=== PATIENT | female | born 1960 | race Caucasian/White ===

== ENCOUNTER → 2018-02-24 09:28 | Outpatient (CLI) | payer OTHER, SELFPAY ==
--- NOTE | 2018-02-24 | DI.MG.S_ITS ---
BILATERAL DIGITAL SCREENING MAMMOGRAM 3D/2D WITH CAD: 02/24/2018 CLINICAL: Routine screening. Comparison is made to exams dated: 02/02/2017 mammogram, 01/26/2016 mammogram, and 01/22/2015 mammogram - [facility]. There are scattered fibroglandular elements in both breasts. Current study was also evaluated with a Computer Aided Detection (CAD) system. No significant masses, calcifications, or other findings are seen in either breast. There has been no significant interval change. IMPRESSION: NEGATIVE There is no mammographic evidence of malignancy. A 1 year screening mammogram is recommended. This exam was interpreted at Station ID: [id number]. NOTE: For mammograms, a report in lay terms will be sent to the patient. Approximately 15% of breast malignancies will not be visualized mammographically. In the management of a palpable breast mass, a negative mammogram must not discourage biopsy of a clinically suspicious lesion. Electronically Signed By: Zhen conrad/emigdio:02/24/2018 11:39:05 letter sent: Normal Exam ACR BI-RADS Category 1: Negative 3341F
== END ==
PROVIDERS: Family Provider Physician Assistant Medical; PCP Physician Assistant Medical; Visit Provider Physician Assistant Medical
DX: Z12.31 Encounter for screening mammogram for malignant neoplasm of breast (principal); Z78.0 Asymptomatic menopausal state
CPT/HCPCS: 77063; 77067; 77080

== ENCOUNTER → 2019-08-23 12:40 | Outpatient (CLI) | payer OTHER, SELFPAY ==
--- NOTE | 2019-08-23 | DI.CT.S_ITS ---
PROCEDURE: CT KIDNEY URETER BLADDER (KUB) INDICATIONS: N20.0 KIDNEY STONE TECHNIQUE: Noncontrast 5 mm thick sections acquired from the diaphragms to the symphysis. 5 mm thick coronal and sagittal reformats were then performed. For radiation dose reduction, the following was used: automated exposure control, adjustment of mA and/or kV according to patient size. COMPARISON: [facility], CT, CT KUB, 06/09/2017, 11:16. [facility], CT, KIDNEY/ URETER/BLADDER, 10/06/2015, 8:35. FINDINGS: Image quality: Excellent. Lung bases: Lung bases are clear. Heart size is normal. Urinary system: Both kidneys are normal in size. At least 3 nonobstructing punctate right kidney stones. Question of punctate left nonobstructing kidney stone. Tiny cortical calcifications. Left kidney simple cyst measuring 2.4 cm. No hydronephrosis or perinephric fat stranding. Both ureters appear non-dilated throughout their expected courses. Bladder is decompressed; no calcified bladder stones. Other solid organs: Liver is normal in size. Hepatic steatosis. Gallbladder is absent. Pancreas is normal in contours. Spleen is normal in size. No adrenal nodules. Peritoneum and bowel: Unenhanced bowel loops demonstrate normal wall thickness and caliber. Appendix is surgically absent. No free fluid or air. Nodes and vessels: No retroperitoneal or mesenteric adenopathy by size criteria. Aorta and inferior vena cava are normal in caliber. Retroaortic left renal vein. Abdominal wall: No ventral hernias. Small right pelvic intramuscular hematoma. Pelvis: No free pelvic fluid. No inguinal hernias or adenopathy. Probable small left ovarian cyst measuring 1.7 cm. Bones: No suspicious bony lesions. No vertebral body compression fractures. IMPRESSION: 1. At least 3 nonobstructing punctate right kidney stones. 2. No hydronephrosis. 3. No bladder calculi. 4. Hepatic steatosis. Dictated by: Melvin Soto M.D. on 08/23/2019 at 13:54 Approved by: Melvin Soto M.D. on 08/23/2019 at 14:01
== END ==
PROVIDERS: Family Provider Physician Assistant Medical; PCP Physician Assistant Medical; Referring Provider Urology; Visit Provider Urology
DX: N20.0 Calculus of kidney (principal); N28.1 Cyst of kidney, acquired; K76.0 Fatty (change of) liver, not elsewhere classified; Z90.49 Acquired absence of other specified parts of digestive tract
CPT/HCPCS: 74176

== ENCOUNTER 2020-04-29 14:12 | Emergency (ER) | payer OTHER, SELFPAY ==
[2020-04-29 14:27] VITALS: BP 158/69; PULSE 110; RESP 24; TEMP 36.3; O2SAT 97
[2020-04-29] MEDS: ONDANSETRON 4 MG ODT SL (14:35)
[2020-04-29] MEDS: KETOROLAC 60 MG/2 ML VIAL 30 MG IM (14:35)
--- NOTE | 2020-04-29 15:08 | DI.CT.S_ITS ---
PROCEDURE: CT KIDNEY URETER BLADDER (KUB) INDICATIONS: flank pain, h/o kidney stone TECHNIQUE: Noncontrast 5 mm thick sections acquired from the diaphragms to the symphysis. 5 mm thick coronal and sagittal reformats were then performed. For radiation dose reduction, the following was used: automated exposure control, adjustment of mA and/or kV according to patient size. COMPARISON: [facility], CT, CT KUB, 06/09/2017, 11:16. [facility], CT, CT KIDNEY URETER BLADDER (KUB), 08/23/2019, 12:46. FINDINGS: Image quality: Excellent. Lung bases: Lung bases are clear. Heart size is normal. Urinary system: Both kidneys are normal in size. Within the right kidney, there are five punctate renal calcifications. There is no obstruction and overall appearance is unchanged compared to prior exam. Left renal cyst is present. Previous punctate superior renal pole calcification is no longer visualized. Left parapelvic cysts are noted. No hydronephrosis or perinephric fat stranding. Both ureters appear non-dilated throughout their expected courses. Bladder wall thickness is normal; no calcified bladder stones. There is incidental note of a retroaortic left renal vein. Other solid organs: Liver is mildly enlarged with steatosis. Gallbladder is unremarkable . Pancreas is normal in contours. Spleen is normal in size. No adrenal nodules. Peritoneum and bowel: Unenhanced bowel loops demonstrate normal wall thickness and caliber. No free fluid or air. Appendectomy surgical changes are noted. Nodes and vessels: No retroperitoneal or mesenteric adenopathy by size criteria. Aorta and inferior vena cava are normal in caliber. Abdominal wall: No ventral hernias. Pelvis: No free pelvic fluid. No inguinal hernias or adenopathy. 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 Bones: No suspicious bony lesions. No vertebral body compression fractures. IMPRESSION: 1. Unchanged appearance of punctate nonobstructing right renal calculi. 2. Previous punctate left renal calcification is no longer visualized. Dictated by: Saima Portillo M.D. on 04/29/2020 at 15:24 Approved by: Saima Portillo M.D. on 04/29/2020 at 15:31
[2020-04-29 16:04] VITALS: BP 139/86; PULSE 77; RESP 16; O2SAT 98
[2020-04-29] MEDS: SODIUM CHLORIDE 0.9% 1,000 ML 1000 ML IV (16:19)
[2020-04-29 16:37] LABS: Add Manual Diff / Slide Review NO; Basophils Absolute Auto 100 /uL (0-100); Basophils Percent Auto 0.6 % (0-2); Eosinophils Absolute Auto 300 /uL (0-450); Eosinophils Percent Auto 2.5 % (2-4); Hematocrit 41.2 % (36-46); Hemoglobin 14.1 g/dL (12.0-16.0); Lymphocytes Absolute Auto 3300 /uL (1100-4500); Mean Corpuscular HGB Conc 34.2 % (30-36); Mean Corpuscular Hemoglobin 31.8 PG (26-34); Mean Corpuscular Volume 92.8 fL (80-100); Monocytes Absolute Auto 1100 /uL (0-900); Monocytes Percent Auto 9.7 % (3-14); Neutrophils Absolute Auto 6300 /uL (1500-7000); Neutrophils Percent Auto 57.2 % (50-75); Platelet Count 289 X10^3/uL (150-400); Red Blood Cell Count 4.44 X10^6/uL (4.0-5.2); Red Cell Distribution Width 13.1 % (11.6-14.8)
[2020-04-29 16:43] LABS: Alanine Aminotransferase 45 IU/L (<35); Albumin 4.3 g/dL (3.5-5.0); Albumin Globulin Ratio 1.2 (1.0-2.8); Alkaline Phosphatase 82 U/L (38-126); Aspartate Aminotransferase 37 IU/L (14-36); BUN Creatinine Ratio 18.9 (6-22); Bilirubin Total 0.3 mg/dL (0.2-1.3); Blood Urea Nitrogen 17 mg/dL (7-17); Calcium 9.3 mg/dL (8.4-10.2); Carbon Dioxide 34 mmol/L (22-32); Chloride 100 mmol/L (98-107); Estimated Glomerular Filt Rate > 60.0 mL/min (>60); Globulin 3.6 g/dL (1.7-4.1); Glucose 101 mg/dL (70-100); HEMOLYSIS < 15 (0-50); Lipase 152 U/L (23-300); Potassium 3.7 mmol/L (3.4-5.1); Sodium 138 mmol/L (137-145); Total Protein 7.9 g/dL (6.3-8.2)
--- NOTE | 2020-04-29 17:04 | ED_ITS ---
HPI - Abdominal Pain General Chief Complaint: Abdominal Pain Stated Complaint: kidney stone Time Seen by Provider: 04/29/20 14:31 Source: patient and old records reviewed Mode of arrival: Ambulatory Limitations: no limitations History of Present Illness HPI narrative: This is a 59-year-old female with complaint of right flank and abdominal pain. Patient states she has had multiple kidney stones in the past. She states up to 150 she does not typically go to the doctors or emergency department. Patient states she developed pain is different in that it has not passed it radiates a little bit towards the midline. Patient states no fevers, no chills. No vomiting, she denies nausea at this time. She denies any diarrhea or constipation. She denies any frequency, dysuria, urgency or hematuria. No vaginal bleeding or discharge. Patient has been taking Tylenol without alleviation of her symptoms. She states that she has had her appendix removed which ruptured in the past when she would get in because she thought she had a kidney stone, she has also had a cholecystectomy. She has had a hysterectomy but does have her both ovaries. She denies any allergies except sulfa. They had [address] where she lives as well as playing with the grand children but does not feel like a muscle strain. She has had that problem in the past. She is not appreciate any lumps or changes in the right groin. Related Data Previous Rx's Medication Instructions Recorded ciprofloxacin HCl 500 mg PO BID #20 tab 04/29/20 hydrocodone-acetaminophen [[place]] 1 tab PO Q6H PRN #7 tab 04/29/20 Allergies Allergy/AdvReac Type Severity Reaction Status Date / Time SULFA Allergy Unknown Uncoded 06/22/17 12:19 Review of Systems Review of Systems ROS Unobtainable: All systems reviewed & are unremarkable except as noted in HPI and below Patient History Medical History (Updated 04/29/20 @ 18:22 by Maru James DO) Kidney stones Surgical History (Updated 04/29/20 @ 17:31 by Maru James DO) H/O: hysterectomy Hx of appendectomy Hx of cholecystectomy Exam Narrative Exam Narrative: GENERAL: Alert and oriented x three, obese, well-appearing female in mild distress. Patient had received Toradol prior to evaluation. HEENT: Head normocephalic, atraumatic, EOMI, pupils reactive, face symmetric, moist mucous membranes NECK: Supple, full range of motion CARDIOVASCULAR: Regular rate and rhythm without murmurs, rubs or gallops. RESPIRATORY: Breath sounds equal bilaterally, no wheezes rales or rhonchi. ABDOMEN: Soft, patient has right-sided tenderness. Normoactive bowel sounds all 4 quadrants. No guarding or rebound, rigidity, no mass, nondistended. : No CVA tenderness bilaterally EXTREMITIES: Normal range of motion, no clubbing or edema. Neurovascularly intact NEUROLOGICAL: Cranial nerves II through XII grossly intact. Moving all extre mities SKIN: Warm, dry, no petechiae, no rashes or lesions. Initial Vital Signs Initial Vital Signs: Vital Signs Temperature 97.4 F L 04/29/20 14:27 Pulse Rate 110 H 04/29/20 14:27 Respiratory Rate 24 04/29/20 14:27 Blood Pressure 158/69 H 04/29/20 14:27 Pulse Oximetry 97 04/29/20 14:27 Course Orders Ordered: ED Orders 04/29/20 15:08 CT kidney ureter bladder (KUB) Stat 04/29/20 16:24 Complete Blood Count AUTO DIFF Stat Comprehensive Metabolic Panel Stat Lipase Stat 04/29/20 17:15 Urinalysis and Microscopic Stat Urine Culture Stat 04/29/20 17:28 US pelvic complete Stat Discontinued Medications Sodium Chloride (Normal Saline 0.9%) 1,000 mls @ 1,000 mls/hr IV BOLUS ONE Stop: 04/29/20 17:10 Last Infusion: 04/29/20 17:00 Dose: 0 mls/hr Documented by: Admin: 04/29/20 16:19 Dose: 1,000 mls/hr Documented by: MARTÍNEZ Ketorolac Tromethamine (Ketorolac 60 Mg/2 Ml Vial) 30 mg IM NOW ONE Stop: 04/29/20 14:32 Last Admin: 04/29/20 14:35 Dose: 30 mg Documented by: FAUSTINO Ondansetron HCl (Ondansetron 4 Mg Odt) 4 mg SL NOW ONE Stop: 04/29/20 14:32 Last Admin: 04/29/20 14:35 Dose: 4 mg Documented by: FAUSTINO Vital Signs Vital signs: Vital Signs - 8 hr 04/29/20 14:27 04/29/20 16:04 Temperature 97.4 F L Pulse Rate 110 H 77 Respiratory Rate 24 16 Blood Pressure 158/69 H 139/86 Pulse Oximetry 97 98 MDM - Abdominal Pain Lab Data Attestation: I reviewed the patient's lab results. Result diagrams: 04/29/20 16:24 04/29/20 16:24 Labs: Lab Results 04/29/20 04/29/20 04/29/20 Range/Units 16:24 16:24 17:15 WBC 11.0 (4.5-11.0) X10^3/uL RBC 4.44 (4.0-5.2) X10^6/uL Hgb 14.1 (12.0-16.0) g/dL Hct 41.2 (36-46) % MCV 92.8 (80-100) fL MCH 31.8 (26-34) PG MCHC 34.2 (30-36) % RDW 13.1 (11.6-14.8) % Plt Count 289 (150-400) X10^3/uL Neut % (Auto) 57.2 (50-75) % Lymph % (Auto) 30.0 (25-40) % [place] % (Auto) 9.7 (3-14) % Eos % (Auto) 2.5 (2-4) % Baso % (Auto) 0.6 (0-2) % Neut # (Auto) 6300 (3945-9762) /uL Lymph # (Auto) 3300 (0579-4782) /uL [place] # (Auto) 1100 H (0-900) /uL Eos # (Auto) 300 (0-450) /uL Baso # (Auto) 100 (0-100) /uL Sodium 138 (137-145) mmol/L Potassium 3.7 (3.4-5.1) mmol/L Chloride 100 (98-107) mmol/L Carbon Dioxide 34 H (22-32) mmol/L BUN 17 (7-17) mg/dL Creatinine 0.90 (0.52-1.04) mg/dL Estimated GFR > 60.0 (>60) mL/min BUN/Creatinine Ratio 18.9 (6-22) Glucose 101 H (70-100) mg/dL Calcium 9.3 (8.4-10.2) mg/dL Total Bilirubin 0.3 (0.2-1.3) mg/dL AST 37 H (14-36) IU/L ALT 45 H (<35) IU/L Alkaline Phosphatase 82 (38-126) U/L Total Protein 7.9 (6.3-8.2) g/dL Albumin 4.3 (3.5-5.0) g/dL Globulin 3.6 (1.7-4.1) g/dL Albumin/Globulin Ratio 1.2 (1.0-2.8) Lipase 152 (23-300) U/L Urine Color Yellow Urine Appearance Clear Urine pH 6.0 (4.5-8.0) Ur Specific [place] 1.015 (1.000-1.035) Urine Protein Negative (Negative) Urine Glucose (UA) Negative (Negative) g/dL Urine Ketones Negative (NEGATIVE) Urine Occult Blood Negative (Negative) Urine Nitrate Negative (Negative) Urine Bilirubin Negative (NEGATIVE) Urine Urobilinogen 0.2 (0.2) E.U./dL Ur Leukocyte Esterase Trace H (NEGATIVE) Urine RBC None seen (0-5/HPF) Urine WBC 1-5/hpf (0-5/HPF) Ur Squamous Epith Cells 1-5 /hpf (0-5/HPF) Amorphous Sediment 1+ Urine Bacteria Occasional (0-1) (None) Urine Mucus 1+ H (Negative) Ur Culture Indicated? Specimen cultured Imaging Data CT scan - abdomen/pelvis: Radiologist's Impression: [address] [id number] Scan ReportSigned Patient: Liana Hampton#: [id number]: 1Acct:[id number]/Sex: 59 / FDate of Service: 04/29/20Loc: EDAccession Number: [id number] Procedure: CT kidney ureter bladder (KUB) Ordering Provider: Maru James D.O. PROCEDURE: CT KIDNEY URETER BLADDER (KUB) INDICATIONS: flank pain, h/o kidney stone TECHNIQUE: Noncontrast 5 mm thick sections acquired from the diaphragms to the symphysis. 5 mm thick coronal and sagittal reformats were then performed. For radiation dose reduction, the following was used: automated exposure control, adjustment of mA and/or kV according to patient size. COMPARISON: [facility], CT, CT KUB, 06/09/2017, 11:16. [facility], CT, CT KIDNEY URETER BLADDER (KUB), 08/23/2019, 12:46. FINDINGS: Image quality: Excellent. Lung bases: Lung bases are clear. Heart size is normal. Urinary system: Both kidneys are normal in size. Within the right kidney, there are five punctate renal calcifications. There is no obstruction and overall appearance is unchanged compared to prior exam. Left renal cyst is present. Previous punctate superior renal pole calcification is no longer visualized. Left parapelvic cysts are noted. No hydronephrosis or perinephric fat stranding. Both ureters appear non-dilated throughout their expected courses. Bladder wall thickness is normal; no c alcified bladder stones. There is incidental note of a retroaortic left renal vein. Other solid organs: Liver is mildly enlarged with steatosis. Gallbladder is unremarkable . Pancreas is normal in contours. Spleen is normal in size. No adrenal nodules. Peritoneum and bowel: Unenhanced bowel loops demonstrate normal wall thickness and caliber. No free fluid or air. Appendectomy surgical changes are noted. Nodes and vessels: No retroperitoneal or mesenteric adenopathy by size crit eria. Aorta and inferior vena cava are normal in caliber. Abdominal wall: No ventral hernias. Pelvis: No free pelvic fluid. No inguinal hernias or adenopathy. 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 Bones: No suspicious bony lesions. No vertebral body compression fractures. IMPRESSION: 1. Unchanged appearance of punctate nonobstructing right renal calculi. 2. Previous punctate left renal calcification is no longer visualized. Dictated by: Saima Portillo M.D. on 04/29/2020 at 15:24 Approved by: Saima Portillo M.D. on 04/29/2020 at 15:31 US - TECHNICAL SUPPORT COORDINATOR: Radiologist's Impression: [address] [id number] ReportSigned Patient: Liana Hampton#: [id number]: 1960cct:[id number]/Sex: 59 / FDate of Service: 04/29/20Loc: EDAccession Number: [id number] Procedure: US pelvic complete Ordering Provider: Maru James D.O. PROCEDURE: US PELVIC COMPLETE INDICATIONS: RLQ pain, no appendix, hx cholecystectomy TECHNIQUE: Real-time scanning was performed of the pelvic organs, with image documentation. Additional endovaginal scanning was necessary due to incomplete visualization of the adnexal and endometrial structures by transabdominal scanning. COMPARISON: None. FINDINGS: Uterus: Status post hysterectomy. Ovaries: Status post bilateral oophorectomy. Other: No pathologic free abdominal or pelvic fluid. IMPRESSION: Status post hysterectomy and oophorectomy. No pelvic mass or pelvic fluid identified. Dictated by: Jonathan Miles M.D. on 04/29/2020 at 17:58 Approved by: Jonathan Miles M.D. on 04/29/2020 at 18:05 [facility] Narrative Medical decision making narrative: This is a 59-year-old female who comes to the emergency department with complaint of right flank and abdominal pain. Patient states she has had multiple stones in the past this is slightly different than her typical pain but fairly similar except for radiation towards midline. Patient's CT KUB is negative, labs do not show any acute major changes, UA does show leuks but no nitrates. Patient does have right-sided abdominal pain. She does have her ovaries but does not have her uterus. Ultrasound does not show any clear ovarian changes but were not visualized but the photogrammetric technician. Plan to start patient on antibiotics for possible pyelonephritis, urine culture is pending. Discharge Plan Departure Patient Disposition: Home Clinical Impression: Pyelonephritis, Right sided abdominal pain, Cyst of left kidney Instructions: DI for Abdominal Pain-Adult Activity Restrictions/Additional Instructions: Follow up with your physician in the next 2-3 days for recheck. Your imaging and labs and urinalysis suggest that you have a infection in your urine that may be tracking anterior kidney and causing her symptoms today. Urine culture takes 2-3 days to result in the meantime I would start oral antibiotics and take until completion. Take pain medication as prescribed this medication can make you sleepy do not drive, perform hazardous activities or make any major decisions while taking it. You should expect constipation with this medication and I would take stool softener such as Colace 1-2 tablets until stools are soft while taking it. Return for fevers, rapidly worsening abdominal, flank pain, persistent vomiting, lightheadedness or passing out, inability to urinate, black or bloody stools or other new or concerning symptoms. Prescriptions: New ciprofloxacin HCl 500 mg tablet 500 mg PO BID Qty: 20 RF: 0 hydrocodone-acetaminophen [[place]] 5-325 mg tablet 1 tab PO Q6H PRN (Reason: pain) Qty: 7 RF: 0 Referrals: Gardenia Rendon PA-C [Primary Care Provider] -
--- NOTE | 2020-04-29 17:28 | DI.US.S_ITS ---
PROCEDURE: US PELVIC COMPLETE INDICATIONS: RLQ pain, no appendix, hx cholecystectomy TECHNIQUE: Real-time scanning was performed of the pelvic organs, with image documentation. Additional endovaginal scanning was necessary due to incomplete visualization of the adnexal and endometrial structures by transabdominal scanning. COMPARISON: None. FINDINGS: Uterus: Status post hysterectomy. Ovaries: Status post bilateral oophorectomy. Other: No pathologic free abdominal or pelvic fluid. IMPRESSION: Status post hysterectomy and oophorectomy. No pelvic mass or pelvic fluid identified. Dictated by: Jonathan Miles M.D. on 04/29/2020 at 17:58 Approved by: Jonathan Miles M.D. on 04/29/2020 at 18:05
[2020-04-29 17:31] LABS: RBC Urine None Seen (0-5/HPF)
[2020-04-29 17:32] LABS: Appearance Urine UA CLEAR; Bilirubin Urine UA NEGATIVE (NEGATIVE); Color Urine UA YELLOW; Glucose Urine UA NEGATIVE (Negative); Ketones Urine UA NEGATIVE (NEGATIVE); Leukocyte Esterase Urine UA TRACE (NEGATIVE); Nitrite Urine UA NEGATIVE (Negative); Occult Blood Urine UA NEGATIVE (Negative); Protein Urine UA NEGATIVE (Negative); Specific Gravity Urine UA 1.015 (1.000-1.035); Urobilinogen Urine UA 0.2 E.U./dL (0.2)
[2020-04-29 17:43] LABS: Amorphous Sediment Urine 1+; Squamous Epithelial Cell Urine 1-5 /HPF (0-5/HPF); WBC Urine 1-5/HPF (0-5/HPF)
[2020-04-29 17:44] LABS: Bacteria Urine Occasional (0-1); Culture Indicated Urine Specimen Cultured; Mucus Urine 1+ (Negative)
--- NOTE | 2020-05-05 11:50 | PC.NURSE ---
pt called requesting urine results. provided info.
== END 2020-04-29 18:34 | disposition home or self-care (01) ==
PROVIDERS: Nurse Practitioner Family; Emergency Provider Emergency Medicine; Family Provider Physician Assistant Medical; PCP Physician Assistant Medical
DX: N12 Tubulo-interstitial nephritis, not specified as acute or chronic (principal); R10.31 Right lower quadrant pain; N28.1 Cyst of kidney, acquired; Z87.442 Personal history of urinary calculi; E66.9 Obesity, unspecified
CPT/HCPCS: 36415; 74176; 76856; 80053; 81001; 83690; 85025; 87086; 96360; 96372; 99284; J1885

== ENCOUNTER → 2020-07-18 10:24 | Outpatient (CLI) | payer OTHER, SELFPAY ==
--- NOTE | 2020-07-18 10:24 | DI.MG.S_ITS ---
BILATERAL DIGITAL SCREENING MAMMOGRAM 3D/2D WITH CAD: 07/18/2020 CLINICAL: Routine screening. Comparison is made to exams dated: 02/24/2018 mammogram, 02/02/2017 mammogram, and 01/26/2016 mammogram - [facility]. There are scattered fibroglandular elements in both breasts. Current study was also evaluated with a Computer Aided Detection (CAD) system. No significant masses, calcifications, or other findings are seen in either breast. There has been no significant interval change. IMPRESSION: NEGATIVE There is no mammographic evidence of malignancy. A 1 year screening mammogram is recommended. This exam was interpreted at Station ID: [id number]. NOTE: For mammograms, a report in lay terms will be sent to the patient. Approximately 15% of breast malignancies will not be visualized mammographically. In the management of a palpable breast mass, a negative mammogram must not discourage biopsy of a clinically suspicious lesion. Electronically Signed By: Sonu Dominguez M.D., jr/emigdio:07/18/2020 11:26:05 letter sent: Normal Exam ACR BI-RADS Category 1: Negative 3341F
== END ==
PROVIDERS: Family Provider Physician Assistant Medical; PCP Physician Assistant Medical; Referring Provider Physician Assistant Medical; Visit Provider Physician Assistant Medical
DX: Z12.31 Encounter for screening mammogram for malignant neoplasm of breast (principal)
CPT/HCPCS: 77063; 77067

== ENCOUNTER 2021-07-02 05:04 | Emergency (ER) | payer OTHER, SELFPAY ==
[2021-07-02] VITALS (8 sets, daily range): BP systolic 113–151; BP diastolic 57–88; PULSE 80–124; RESP 20–27; TEMP 36.9; O2SAT 95–99; BMI 33.3
--- NOTE | 2021-07-02 05:14 | DI.RAD.S_ITS ---
PROCEDURE: XR CHEST 1V INDICATIONS: Cough and fever TECHNIQUE: One view of the chest was acquired. COMPARISON: None. FINDINGS: Surgical changes and devices: None. Lungs and pleura: Lungs are clear. No pleural effusions or pneumothorax. Mediastinum: Mediastinal contours appear normal. Heart size is normal. Bones and chest wall: No suspicious bony lesions. Overlying soft tissues appear unremarkable. IMPRESSION: No evidence acute pulmonary process. Comment: Final report is concordant with preliminary interpretation provided by [facility]. Dictated by: Luciano Lund M.D. on 07/02/2021 at 8:19 Approved by: Luciano Lund M.D. on 07/02/2021 at 8:20
--- NOTE | 2021-07-02 05:26 | ED_ITS ---
HPI - General Adult General Chief complaint: Upper Respiratory Symptoms Stated complaint: cold, headache, coughing Time Seen by Provider: 07/02/21 05:13 Source: patient Mode of arrival: Ambulatory History of Present Illness HPI narrative: 61-year-old female who is here for evaluation of several days of a headache and a productive cough and a fever and wheezing. She did take some Tylenol prior to arrival. No history of underlying lung pathology to include asthma or COPD. Related Data Home Medications Medication Instructions Recorded Confirmed hydrochlorothiazide 25 mg tablet 25 mg PO DAILY 05/05/20 05/05/20 Previous Rx's Medication Instructions Recorded ciprofloxacin HCl 500 mg tablet 500 mg PO BID #20 tab 04/29/20 hydrocodone 5 mg-acetaminophen 325 1 tab PO Q6H PRN #7 tab 04/29/20 mg tablet ([place]) albuterol sulfate 90 mcg/actuation 2 puff INHALATION QID PRN #8.5 g 07/02/21 aerosol inhaler dexamethasone 4 mg tablet 12 mg PO DAILY #3 tab 07/02/21 (Decadron) Allergies Allergy/AdvReac Type Severity Reaction Status Date / Time SULFA Allergy Unknown Uncoded 05/05/20 13:37 Review of Systems Constitutional Constitutional: Reports fever(s) Cardiovascular Cardiovascular: Reports chest pain and Reports dyspnea Respiratory Respiratory: Reports cough and Reports dyspnea Gastrointestinal Gastrointestinal: Reports system reviewed and no additional complaints, except as documented Musculoskeletal Comments: No lower extremity swelling Integumentary/Breasts Skin/Breast: Denies rash Hematologic/Lymphatic On Anticoagulants: No Patient History Medical History Kidney stones Surgical History (Updated 04/29/20 @ 17:31 by Maru James DO) H/O: hysterectomy Hx of appendectomy Hx of cholecystectomy Social History Smoking Status: Never smoker Smoking Status: Never smoker Substance Use Type: does not use Exam Initial Vital Signs Initial Vital Signs: Vital Signs Pulse Rate 82 07/02/21 05:13 Pulse Oximetry 99 07/02/21 05:13 HENMT Head: normal to inspection and normocephalic Resp Effort & Inspection: cough, labored and tachypneic Auscultation: rhonchi and wheezes Cardio Rate: regular rate Rhythm: regular rhythm GI Inspection: normal to inspection Skin General: no rashes or lesions noted Neuro General: patient alert, patient awake and moves all extremities Speech: speech normal Gait: normal gait Extrem General: No edema Psych Appearance: grossly normal Course Orders Ordered: ED Orders 07/02/21 05:14 XR chest 1V Stat EKG-12 Lead Stat 07/02/21 05:15 COVID19 -Nasal RAPID/Pre-Proc Stat Discontinued Medications Albuterol (Albuterol 2.5 Mg/3 Ml Neb (Adult)) 20 mg INH NOW ONE Stop: 07/02/21 05:24 Last Admin: 07/02/21 05:35 Dose: 20 mg Documented by: AXEL Dexamethasone (Dexamethasone 4 Mg Tablet) 12 mg PO NOW ONE Stop: 07/02/21 05:27 Last Admin: 07/02/21 05:49 Dose: 12 mg Documented by: LENNIE Vital Signs Vital signs: Vital Signs - 8 hr 07/02/21 05:13 07/02/21 05:16 07/02/21 05:30 Temperature 98.4 F Pulse Rate 82 80 84 Respiratory Rate 22 27 H Blood Pressure 138/78 132/88 Pulse Oximetry 99 98 98 07/02/21 05:38 07/02/21 06:00 07/02/21 06:13 Temperature Pulse Rate 88 97 H 112 H Respiratory Rate 26 H 20 Blood Pressure 114/57 L Pulse Oximetry 99 99 07/02/21 06:30 07/02/21 07:00 Temperature Pulse Rate 120 H 124 H Respiratory Rate 27 H 26 H Blood Pressure 113/59 L 151/62 H Pulse Oximetry 98 95 Medical Decision Making Lab Data Labs: Lab Results 07/02/21 Range/Units 05:15 SARS-CoV-2 (PCR) Negative (Negative) Imaging Data Chest x-ray: Radiologist's Impression: No acute cardiopulmonary abnormalities identified ECG Data Attestation: I personally reviewed and interpreted this ECG as follows: Interpretation: Sinus rhythm Ventricular rate 80 Normal axis Normal QRS Normal QTC No ST T wave changes MDM Narrative Medical decision making narrative: Patient with significant wheezing and decreased air flow bilaterally. Not hypoxic post certainly tachypneic. After a continuous nebulizer treatment and steroids patient's symptoms improved. She was clear. She felt better. Started having a more productive cough. Chest x-ray shows no signs of pneumonia. COVID negative. Plan basis sent home with an inhaler and also steroids for tomorrow. No indication for antibiotics currently although she was given return precautions. She expressed understanding and agreement. Discharge Plan Departure Patient Disposition: Home Clinical Impression: Acute respiratory infection, Wheezing Instructions: Cough Activity Restrictions/Additional Instructions: Your chest x-ray did not show any signs of pneumonia today in your COVID was negative. This does not mean that you do not have an infection but there is no indication for antibiotics currently. I do recommend that use the steroids and the albuterol inhaler as directed. You can continue to take Tylenol for any fevers. You can try [id number] cough and cold preparations like we discussed. Contact your primary doctor for a follow-up. Return to the emergency department for any new or worsening symptoms. Prescriptions: New dexamethasone [Decadron] 4 mg tablet 12 mg PO DAILY Qty: 3 0RF Rx Instructions: next dose is 07/03/21 albuterol sulfate 90 mcg/actuation HFA aerosol inhaler 2 puff inhalation QID PRN (Reason: shortness of breath or wheezing) Qty: 8.5 0RF No Action hydrochlorothiazide 25 mg tablet 25 mg PO DAILY 0RF ciprofloxacin HCl 500 mg tablet 500 mg PO BID Qty: 20 0RF hydrocodone-acetaminophen [[place]] 5-325 mg tablet 1 tab PO Q6H PRN (Reason: pain) Qty: 7 0RF Referrals: Gardenia Rendon PA-C [Primary Care Provider] -
[2021-07-02] MEDS: ALBUTEROL 2.5 MG/3 ML NEB (ADULT) 20 MG INH (05:35)
[2021-07-02 05:41] LABS: COVID19 -Nasal RAPID Negative (Negative)
[2021-07-02] MEDS: dexAMETHasone 4 MG TABLET 12 MG PO (05:49)
--- NOTE | 2021-07-02 06:18 | RT ---
pt recieving continous neb at this time , noted improvement in lung sounds , increased air mvmt noted , patient is able to speak in full sentences . no change in the frequency of coughing . I have instructed the patient to take a few shallow breaths to decrease coughing . I am now able to hear some crackles bibasilar and some scattered expiratory wheeze. oral steroid was given.
== END 2021-07-02 07:33 | disposition home or self-care (01) ==
PROVIDERS: Emergency Provider Emergency Medicine; Family Provider Physician Assistant Medical; PCP Physician Assistant Medical
DX: J06.9 Acute upper respiratory infection, unspecified (principal); R06.2 Wheezing; Z20.822 Contact with and (suspected) exposure to COVID-19; Z88.2 Allergy status to sulfonamides
CPT/HCPCS: 71045; 87635; 93005; 94640; 99283; 99284; C9803; J7613

== ENCOUNTER → 2022-02-18 18:28 | Outpatient (CLI) | payer OTHER, SELFPAY ==
[2022-02-18 19:19] LABS: Influenza A - CEPHEID Flu A NEGATIVE (NEGATIVE); Influenza B - CEPHEID Flu B NEGATIVE (NEGATIVE); Respiratory Syncytial Virus Negative (Negative)
[2022-02-18 19:23] LABS: COVID-19 CEPHEID 4-PLEX PCR Negative (Negative)
== END ==
PROVIDERS: Family Provider Physician Assistant Medical; PCP Physician Assistant Medical; Visit Provider Nurse Practitioner Family
DX: J06.9 Acute upper respiratory infection, unspecified (principal); Z20.822 Contact with and (suspected) exposure to COVID-19
CPT/HCPCS: 0241U

== ENCOUNTER → 2022-02-24 10:38 | Outpatient (CLI) | payer OTHER, SELFPAY ==
--- NOTE | 2022-02-24 | DI.MG.S_ITS ---
BILATERAL DIGITAL SCREENING MAMMOGRAM 3D/2D WITH CAD: 02/24/2022 CLINICAL: Routine screening. Comparison is made to exams dated: 07/18/2020 mammogram, 02/24/2018 mammogram, and 02/02/2017 mammogram - [facility]. There are scattered areas of fibroglandular density in both breasts (category b / 25%-50% glandular tissue). Current study was also evaluated with a Computer Aided Detection (CAD) system. No significant masses, calcifications, or other findings are seen in either breast. There has been no significant interval change. IMPRESSION: NEGATIVE There is no mammographic evidence of malignancy. A 1 year screening mammogram is recommended. Based on the Tyrer Cuzick model (a risk assessment model) the patient's lifetime risk is 4.2% and her 10 year risk is 1.7%. According to the ACR, ACS, and NCCN guidelines, an annual breast MRI exam along with mammogram is recommended if the patient's lifetime risk is 20% or greater. This exam was interpreted at Station ID: [id number]. NOTE: For mammograms, a report in lay terms will be sent to the patient. Approximately 15% of breast malignancies will not be visualized mammographically. In the management of a palpable breast mass, a negative mammogram must not discourage biopsy of a clinically suspicious lesion. Electronically Signed By: Jonathan hamilton/emigdio:02/24/2022 14:40:49 letter sent: Normal Exam ACR BI-RADS Category 1: Negative 3341F
== END ==
PROVIDERS: Family Provider Physician Assistant Medical; PCP Physician Assistant Medical; Referring Provider Physician Assistant Medical; Visit Provider Physician Assistant Medical
DX: Z12.31 Encounter for screening mammogram for malignant neoplasm of breast (principal)
CPT/HCPCS: 77063; 77067

== ENCOUNTER → 2022-10-20 08:28 | Outpatient (CLI) | payer OTHER, SELFPAY ==
--- NOTE | 2022-10-20 | DI.CT.S_ITS ---
PROCEDURE: CT KIDNEY URETER BLADDER (KUB) INDICATIONS: NEPHROLITHIASIS TECHNIQUE: Axial sections were acquired from the lung bases to the pubic symphysis. Coronal and sagittal reformats were performed. For radiation dose reduction, the following was used: automated exposure control, adjustment of mA and/or kV according to patient size. COMPARISON: [facility], CT, CT KIDNEY URETER BLADDER (KUB), 04/29/2020, 15:08. FINDINGS: Image quality: Excellent. Lung bases: Unremarkable. Heart: No significant findings. URINARY: Right Kidney: Redemonstration of 5 punctate calcifications within the right kidney, unchanged since prior CT 04/29/2020. No hydronephrosis Right Ureter: No hydroureter Left Kidney: No nephrolithiasis or hydronephrosis. Simple cortical cyst. Left Ureter: No hydroureter. Bladder: Normal wall thickness. No stones. ABDOMEN: Liver: Unremarkable. Gallbladder: Surgically absent Biliary ducts: Unremarkable. Pancreas: Unremarkable. Spleen: Unremarkable. Adrenal Glands: Unremarkable. Stomach and Bowel: Stomach, small bowel loops, and colon are unremarkable. Status post appendectomy. Peritoneum: No abnormal intraperitoneal fluid. No free air. Ventral Wall: No hernia. Abdominal Nodes: No enlarged retroperitoneal or mesenteric lymph nodes. Vessels: Aorta and inferior vena cava are normal in size. PELVIS: Pelvic Organs: Unremarkable. Pelvic Nodes: Unremarkable. Miscellaneous: No inguinal hernias are seen. Bones: No acute or suspicious osseous lesion. Mild degenerative changes of the spine. IMPRESSION: Stable appearance of nonobstructing punctate right renal calculi since 04/29/2020. No hydronephrosis. Approved by: Keesha Alston M.D. on 10/20/2022 at 19:57
== END ==
PROVIDERS: Family Provider Physician Assistant Medical; PCP Physician Assistant Medical; Referring Provider Physician Assistant; Visit Provider Physician Assistant
DX: N20.0 Calculus of kidney (principal)
CPT/HCPCS: 74176

== ENCOUNTER → 2023-02-25 07:25 | Outpatient (CLI) | payer OTHER, SELFPAY ==
--- NOTE | 2023-02-25 | DI.MG.S_ITS ---
BILATERAL DIGITAL SCREENING MAMMOGRAM 3D/2D WITH CAD: 02/25/2023 CLINICAL: Routine screening. Comparison is made to exams dated: 02/24/2022 mammogram, 07/18/2020 mammogram, 02/02/2017 mammogram, and 02/24/2018 mammogram - [facility]. There are scattered areas of fibroglandular density in both breasts (category b / 25%-50% glandular tissue). Current study was also evaluated with a Computer Aided Detection (CAD) system. No significant masses, calcifications, or other findings are seen in either breast. There has been no significant interval change. IMPRESSION: NEGATIVE There is no mammographic evidence of malignancy. A 1 year screening mammogram is recommended. Based on the Tyrer Cuzick model (a risk assessment model) the patient's lifetime risk is 4.1% and her 10 year risk is 1.7%. According to the ACR, ACS, and NCCN guidelines, an annual breast MRI exam along with mammogram is recommended if the patient's lifetime risk is 20% or greater. This exam was interpreted at Station ID: [id number]. NOTE: For mammograms, a report in lay terms will be sent to the patient. Approximately 15% of breast malignancies will not be visualized mammographically. In the management of a palpable breast mass, a negative mammogram must not discourage biopsy of a clinically suspicious lesion. Electronically Signed By: Keesha Alston M.D., PH.D vj/emigdio:02/25/2023 09:01:01 letter sent: Normal Exam ACR BI-RADS Category 1: Negative 3341F
== END ==
PROVIDERS: Family Provider Physician Assistant Medical; PCP Physician Assistant Medical; Referring Provider Physician Assistant Medical; Visit Provider Physician Assistant Medical
DX: Z12.31 Encounter for screening mammogram for malignant neoplasm of breast (principal)
CPT/HCPCS: 77063; 77067

== ENCOUNTER → 2023-08-16 11:45 | Outpatient (CLI) | payer OTHER, SELFPAY ==
--- NOTE | 2023-08-16 11:46 | DI.MRI.S_ITS ---
PROCEDURE: MR SHOULDER LT WO CON INDICATIONS: Impingement Syndrome Left Shoulder TECHNIQUE: Noncontrast oblique coronal T2 fast spin echo with fat saturation, oblique sagittal T1 spin echo and T2 fast spin echo with fat saturation, axial T1 spin echo and T2 fast spin echo with fat saturation through the shoulder. COMPARISON: [facility], CR, XR SHOULDER 2+ VIEWS LEFT, 07/28/2023, 14:18. FINDINGS: Image quality: Excellent. Rotator cuff: Mild T2 signal elevation diffusely throughout the supraspinatus and infraspinatus tendons at the humeral insertion sites extending to the musculotendinous junctions, indicating tendinopathy. Superimposed low-grade articular surface tearing of the anterior supraspinatus tendon at the humeral insertion site. Superimposed low-grade articular surface and bursal surface tearing of the mid/posterior supraspinatus and anterior infraspinatus tendons at the humeral insertion sites. Subscapularis and teres minor tendons are intact. Bones and bursae: No bone marrow contusions or fractures. Mild glenohumeral and acromioclavicular joint degeneration. The acromion demonstrates conventional anatomy, without an os acromiale. No pathologic subacromial-subdeltoid or subcoracoid bursal fluid is present. Capsule and soft tissues: Labrum is grossly intact. Low-grade tearing of the biceps tendon. The rotator interval appears normal, without fibrosis. The coracohumeral ligament is normal in thickness. IMPRESSION: 1. Supraspinatus and infraspinatus tendinopathy with superimposed low-grade partial-thickness tears. 2. Partial thickness biceps tendon tear. 3. Acromioclavicular and glenohumeral joint osteoarthritis. Dictated by: Soraya Candelaria M.D. on 08/16/2023 at 13:19 Approved by: Soraya Candelaria M.D. on 08/16/2023 at 13:23
--- NOTE | 2023-08-16 11:46 | DI.MRI.S_ITS ---
PROCEDURE: MR CERVICAL SPINE WO CON INDICATIONS: radiculopathy, cervical region TECHNIQUE: Noncontrast sagittal T1 spin echo and T2 fast spin echo, sagittal STIR, foraminal oblique sagittal T2 fast spin echo, and axial gradient echo or T2 fast spin echo through the cervical spine. COMPARISON: [facility], MR, C-SPINE WITHOUT CONTRAST, 11/08/2013, 13:47. FINDINGS: Image quality: Excellent. Alignment and Curvature: There is loss of normal cervical lordosis. Bone Marrow: Marrow demonstrates normal overall signal. Mild reactive signal throughout the endplates of the cervical spine, most prominently at C4-C5 and C5-C6. Spinal Cord: Visualized spinal cord has normal size and signal. No cerebellar tonsillar herniation. Paraspinous Soft Tissues: No paravertebral masses. Prevertebral soft tissues are normal in thickness. C2-C3: Congenital canal stenosis. Overall mild canal stenosis. No foraminal stenosis. No significant change. C3-C4: Congenital canal stenosis. Mild disc desiccation and diffuse disc bulge. Mild facet and uncovertebral hypertrophy bilaterally. Mild canal stenosis. Moderate bilateral foraminal stenosis. No significant change. C4-C5: Congenital canal stenosis. Mild disc desiccation and diffuse disc bulge with superimposed left paracentral protrusion. Mild facet and uncovertebral hypertrophy bilaterally. Moderate to severe canal stenosis with mild cord flattening. Moderate bilateral foraminal stenosis. No significant change. C5-C6: Congenital canal stenosis. Mild disc desiccation and diffuse disc bulge. Mild facet and uncovertebral hypertrophy bilaterally. Moderate canal stenosis. Mild bilateral foraminal stenosis. No significant change. C6-C7: Congenital canal stenosis. Mild disc desiccation and diffuse disc bulge. Mild facet and uncovertebral hypertrophy bilaterally. Mild canal stenosis. Mild bilateral foraminal stenosis. No significant change. C7-T1: Mild disc desiccation and diffuse disc bulge. Congenital canal stenosis. Mild canal stenosis. No foraminal stenosis. No significant change. IMPRESSION: 1. Diffuse congenital canal stenosis with superimposed disc and facet disease, as well as uncovertebral hypertrophy. 2. Multilevel canal stenoses, worst at C4-C5 where there is mild cord flattening. 3. Multilevel foraminal stenoses, worst at C3-C4 and C4-C5 where there are moderate foraminal stenoses. Dictated by: Soraya Candelaria M.D. on 08/16/2023 at 13:23 Approved by: Soraya Candelaria M.D. on 08/16/2023 at 13:32
== END ==
PROVIDERS: Family Provider Physician Assistant Medical; PCP Physician Assistant Medical; Referring Provider Orthopaedic Surgery; Visit Provider Orthopaedic Surgery
DX: M25.812 Other specified joint disorders, left shoulder (principal); M75.112 Incomplete rotator cuff tear or rupture of left shoulder, not specified as traumatic; S46.212A Strain of muscle, fascia and tendon of other parts of biceps, left arm, initial encounter; M19.012 Primary osteoarthritis, left shoulder; S16.1XXA Strain of muscle, fascia and tendon at neck level, initial encounter; M48.02 Spinal stenosis, cervical region; M47.22 Other spondylosis with radiculopathy, cervical region; M50.11 Cervical disc disorder with radiculopathy, high cervical region
CPT/HCPCS: 72141; 73221

== ENCOUNTER → 2023-09-23 16:45 | Outpatient (CLI) | payer OTHER, SELFPAY ==
--- NOTE | 2023-09-23 16:46 | DI.MRI.S_ITS ---
PROCEDURE: MR LUMBAR SPINE WO CON INDICATIONS: Radiculopathy, lumbar region TECHNIQUE: Noncontrast sagittal T1 spin echo and T2 fast echo, sagittal STIR, and T2 fast spin echo through the lumbar spine. In cases with scoliosis, additional coronal T2 fast spin echo may be performed. COMPARISON: [facility], , L-SPINE WITHOUT CONTRAST, 02/05/2014, 18:42. FINDINGS: Image quality: Excellent. Alignment and Curvature: There is normal bony alignment. Bone Marrow: Marrow is of normal overall signal. No acute vertebral body compression fractures. Spinal Cord: Conus medullaris terminates at the L1-L2 level. Visualized cord demonstrates normal signal and size. Paraspinous Soft Tissues: No paravertebral masses. T12-L1: Normal appearance. L1-L2: Normal appearance. L2-L3: Minimal disc bulge. Mild facet hypertrophy. No canal stenosis or foraminal stenosis. L3-L4: Mild facet hypertrophy. No canal stenosis or foraminal stenosis. Minimal disc bulge. Facet hypertrophy. Borderline canal stenosis. No significant foraminal stenosis. L4-L5: Minimal disc bulge. Facet hypertrophy. Borderline canal stenosis. No significant foraminal stenosis. L5-S1: Facet hypertrophy. Disc bulge. No canal stenosis or foraminal stenosis. IMPRESSION: 1. Multilevel underlying facet arthropathy. 2. Borderline canal stenosis at L3-L4. No canal stenosis at other levels. 3. No foraminal nerve root impingement. Dictated by: Luciano Lund M.D. on 09/26/2023 at 10:16 Approved by: Luciano Lund M.D. on 09/26/2023 at 10:38
== END ==
LOC: MRI 16:45
PROVIDERS: Family Provider Physician Assistant Medical; PCP Physician Assistant Medical; Referring Provider Orthopaedic Surgery; Visit Provider Orthopaedic Surgery
DX: M47.26 Other spondylosis with radiculopathy, lumbar region (principal); M47.27 Other spondylosis with radiculopathy, lumbosacral region
CPT/HCPCS: 72148

== ENCOUNTER 2024-04-09 22:07 | Emergency (ER) | payer OTHER, SELFPAY ==
[2024-04-09 22:11] VITALS: BP 152/72; PULSE 95; RESP 18; TEMP 36.9; O2SAT 97; BMI 39.9
--- NOTE | 2024-04-09 22:24 | DI.RAD.S_ITS ---
PROCEDURE: XR SHOULDER RT MIN 2V INDICATIONS: fall with reports of r shoulder, rib and lower back pain TECHNIQUE: 3 views of the shoulder were acquired. COMPARISON: None. FINDINGS: Bones: No fractures or dislocations. No suspicious bony lesions. Visualized ribs appear intact. Soft tissues: No suspicious soft tissue calcifications. IMPRESSION: No acute bony abnormality. If symptoms persist with conservative management, consider cross-sectional imaging such as CT or MRI. Approved by: Keesha Alston M.D.,Ph.D. on 04/09/2024 at 23:40
--- NOTE | 2024-04-09 22:24 | DI.RAD.S_ITS ---
PROCEDURE: XR RIBS RT 2V INDICATIONS: fall with reports of r shoulder, rib and lower back pain TECHNIQUE: 4 views of the ribs were acquired. COMPARISON: None. FINDINGS: Surgical changes and devices: None. Bones and chest wall: No fractures or dislocations. No suspicious bony lesions. Overlying soft tissues appear unremarkable. Lungs and pleura: The visualized lung appears clear. No pleural effusions or pneumothorax are visible. IMPRESSION: No acute displaced rib fracture. Approved by: Keesha Alston M.D.,Ph.D. on 04/09/2024 at 23:39
== END 2024-04-10 00:06 | disposition left against medical advice (07) ==
PROVIDERS: Emergency Provider Emergency Medicine; Family Provider Physician Assistant Medical; PCP Physician Assistant Medical
DX: M25.511 Pain in right shoulder (principal); M62.830 Muscle spasm of back; R07.81 Pleurodynia; M54.50 Low back pain, unspecified; W19.XXXA Unspecified fall, initial encounter
CPT/HCPCS: 71100; 73030; 99281

== ENCOUNTER → 2024-10-01 07:42 | Outpatient (CLI) | payer OTHER, SELFPAY ==
--- NOTE | 2024-10-01 07:44 | DI.MG.S_ITS ---
MM screening mammo BI: 10/01/2024. BI-RADS: 1 CLINICAL: 64-year old female for bilateral screening mammogram. Tyrer-Cuzick lifetime risk of 6.8%. No personal or first-degree family history of breast cancer. PRIOR EXAMS 02/25/2023, 02/24/2022, 07/18/2020. MAMMOGRAPHY TECHNIQUE: 2D and 3D (tomosynthesis) digital mammographic views obtained, with additional images as needed for full coverage. Current study was also evaluated with a Computer Aided Detection (CAD) system. DENSITY B. There are scattered areas of fibroglandular density. MAMMOGRAPHY FINDINGS Bilateral: No suspicious mass, asymmetry, microcalcification, or other abnormality seen. No significant change from comparison. IMPRESSION: * No evidence of malignancy. RECOMMENDATIONS Bilateral * Annual screening mammography. OVERALL ASSESSMENT CATEGORY BI-RADS-1: Negative. The [employer] recommends annual screening mammography beginning at age 40 for women with average risk of breast cancer. ELECTRONICALLY SIGNED: Salima Vidal M.D. on 10/01/2024 at 09:39:55 AM PT Interpreting Station ID: [id number]
== END ==
PROVIDERS: Family Provider Physician Assistant Medical; PCP Physician Assistant Medical; Referring Provider Physician Assistant Medical; Visit Provider Physician Assistant Medical
DX: Z12.31 Encounter for screening mammogram for malignant neoplasm of breast (principal)
CPT/HCPCS: 77063; 77067